=== PATIENT | male | born 2000 | race African-American/Black ===

== ENCOUNTER 2023-10-22 01:50 | Inpatient (IN) ==
[2023-10-22 03:30] LABS: ABS Basophils 0.1 10^3/uL (0.0-0.1); ABS Eosinophils 0.2 10^3/uL (0.0-0.5); ABS Lymphocytes 4.1 10^3/uL (1.0-4.8); ABS Monocytes 0.7 10^3/uL (0.0-1.1); ABS Neutrophils 2.7 10^3/uL (1.5-7.6); ABS Nucleated RBC 0.01 10^3/ul; Eosinophil % 2.2 %; Hematocrit 41.1 % (38-53); Lymphocyte % 53.2 %; Mean Corpuscular Hemoglobin 30.6 pg (27-33); Mean Corpuscular Volume 89.9 fL (80-97); Mean Platelet Volume 8.5 fL (7.5-11.2); Nucleated Red Blood Cells % 0.2 %/100WBC (0.0-0.8); Platelet Count 216 10^3/uL (150-450); Red Blood Count 4.57 10^6/uL (4.06-5.63); White Blood Count 7.7 10^3/uL (3.6-10.2)
[2023-10-22 03:47] LABS: ALT 24 U/L (7-52); AST 31 U/L (13-39); Albumin/Globulin Ratio 1.7 (1-3); Alkaline Phosphatase 62 U/L (35-149); Anion Gap 8 mmol/L (2-16); Blood Urea Nitrogen 15 mg/dL (6-24); CO2 Carbon Dioxide 25 mmol/L (22-32); Chloride 105 mmol/L (101-111); Creatinine, Serum 0.92 mg/dL (0.67-1.17); Globulin 2.3 g/dL (2-4); Glucose 100 mg/dL (70-100); Sodium 138 mmol/L (135-145); Total Bilirubin 0.5 mg/dL (0.2-1.0); Total Protein 6.3 g/dL (6.4-8.9); eGFR CKD-EPI 119.9 (>60)
[2023-10-22 04:30] LABS: Acetaminophen < 15 mcg/mL; Alcohol, S < 13 mg/dL (<13); Salicylate < 2.50 mg/dL (<30)
[2023-10-22 06:21] LABS: TSH Ultra Thyroid Stim Horm 0.45 mcIU/mL (0.34-5.60)
[2023-10-22 08:13] LABS: Urine Appearance Clear; Urine Bilirubin Negative (Negative); Urine Blood Negative (Negative); Urine Color Yellow; Urine Glucose Negative (Negative); Urine Ketones Negative (Negative); Urine Nitrite Negative (Negative); Urine Protein Negative (Negative); Urine Specific Gravity 1.017 (1.002-1.030); Urine Urobilinogen Negative (Negative)
[2023-10-22 08:19] LABS: Urine Bacteria Absent (Absent); Urine Red Blood Cell Trace(0-2/hpf) (Absent); Urine Squamous Epithelial Cell Present (Absent); Urine White Blood Cell Trace(0-5/hpf) (Absent)
[2023-10-22 08:27] LABS: Urine Benzodiazepine Screen None Detected (None Detect); Urine Cannabinoids Screen Presumptive Positive (None Detect); Urine Opiates Screen None Detected (None Detect)
[2023-10-22 09:39] LABS: High Sensitivity Troponin 1 Hr < 3 pg/mL (<20)
[2023-10-22 14:14] LABS: Lithium < 0.16 mmol/L (0.6-1.2)
[2023-10-22] MEDS ORDERED: Haloperidol 5 mg/ml SDV IV/IM 5 MG/ML AMP ONE ×2 (16:09→16:11)
[2023-10-22] MEDS ORDERED: Albuterol HFA INHALER 8 gm MDI INH PRN ×2 (16:31→17:48)
[2023-10-23] MEDS: PROGESTERONE 100 MG PO SCH (20:16)
[2023-10-24] MEDS ORDERED: Al Hydrox/Mg Hydrox/Simet LIQ 30 ML UDC PO PRN (12:26)
[2023-10-24 17:13] LABS: HDL Cholesterol 49.1 mg/dL
[2023-10-24 20:10] LABS: Hepatitis B Surface Antigen Nonreactive (Nonreactive)
[2023-10-24 20:19] LABS: HIV 4th Generation Nonreactive (Nonreactive)
[2023-10-24 20:27] LABS: Hepatitis B Surface Ab Not Immune (Immune); Hepatitis C Antibody Negative (Negative)
[2023-10-24] MEDS: PROGESTERONE 100 MG PO SCH (20:47)
[2023-10-25 10:44] VITALS: BP 125/73
[2023-10-26 15:57] LABS: RPR Reactive (Nonreactive)
== END 2023-10-25 13:30 | disposition home or self-care (01) | DRG 897 ==
LOC: ED 01:50 → EDHOLD 08:54 → BSU 09:10
PROVIDERS: ADMIT Psychiatry & Neurology Psychiatry; ATTEND Psychiatry & Neurology Psychiatry